=== PATIENT | female | born 1995 | race African-American/Black ===

== ENCOUNTER 2020-01-17 23:03 | Inpatient (IN) ==
[2020-01-17] MEDS ORDERED: ONDANSETRON 4 MG/2 ML VIAL IV PRN (23:21)
[2020-01-17] MEDS ORDERED: LACTATED RINGERS 1,000 ML IV ONE (23:21)
[2020-01-17] MEDS ORDERED: LACTATED RINGERS 1,000 ML IV SCH (23:30)
[2020-01-17] MEDS ORDERED: miSOPROStoL 200 MCG TABLET ONE (23:34)
[2020-01-17] MEDS ORDERED: MEPERIDINE 50 MG/1 ML VIAL ONE (23:34)
[2020-01-17] MEDS ORDERED: TRANEXAMIC ACID 1,000 MG/10 ML VIAL ONE (23:34)
[2020-01-17] MEDS ORDERED: ONDANSETRON 4 MG/2 ML VIAL ONE (23:34)
[2020-01-17] MEDS ORDERED: CARBOPROST TROMETHAMINE 250 MCG/ML AMP IM ONE (23:35)
[2020-01-17] MEDS ORDERED: OXYTOCIN/LR 20 UNIT/1,000 ML BAG IV ONE (23:35)
[2020-01-17] MEDS ORDERED: LIDOCAINE 1% 50 ML VIAL ONE (23:36)
[2020-01-17 23:40] LABS: Basophils % 0.1 % (0.0-0.8); Eosinophils % 0.3 % (0.00-10.9); Hematocrit 35.2 VOL% (35.7-47.0); Hemoglobin 11.4 GM/DL (12.0-16.0); Immature Granulocytes % 0.6 %; Immature Granulocytes Absolute 0.04 #; Lymphocytes # 1.9 10*3/uL (1.4-4.0); Lymphocytes % 25.8 % (21.3-54.2); Mean Corpuscular HGB Conc 32.4 GM/DL (32-36); Mean Corpuscular Volume 89.3 FL (87-102); Mean Platelet Volume 10.5 FL (9.6-12.0); Monocytes % 9.2 % (1.7-12.7); Platelet Count 225 T/CUMM (130-400); Red Blood Count 3.94 MC/CUMM (3.8-5.5); Red Cell Distribution Width 13.7 % (9.3-17.3); White Blood Count 7.2 T/CUMM (4-12)
[2020-01-18] MEDS ORDERED: OXYTOCIN/LR 20 UNIT/1,000 ML BAG IV ONE ×2 (00:01→01:18)
[2020-01-18 00:04] LABS: Alanine Aminotransferase 16 U/L (13-56); Albumin 2.8 G/DL (3.4-5.0); Alkaline Phosphatase 235 U/L (45-117); Aspartate Amino Transferase 17 U/L (0-37); Bilirubin,Total < 0.39 MG/DL (0.2-1.0); Blood Urea Nitrogen 7 MG/DL (7-18); Calcium 9.1 MG/DL (8.5-10.1); Estimated Glom Filtration Rate 194 ML/MIN; Glucose 88 MG/DL (74-106); Total Protein 7.5 G/DL (6.4-8.3)
[2020-01-18 01:15] LABS: Cord Arterial Blood HCO3 18.7 MMOL/L
[2020-01-18 01:18] LABS: Cord Venous Blood HCO3 21.1 MMOL/L; Cord Venous Blood PCO2 40.7 MMHG; Cord Venous Blood PO2 33.5
[2020-01-18] MEDS ORDERED: WITCH HAZEL PADS 100/JAR TOP PRN (01:18)
[2020-01-18] MEDS ORDERED: BISACODYL 10 MG SUPP RECTAL PRN (01:18)
[2020-01-18] MEDS ORDERED: BENZOCAINE 20%/MENTHOL 0.5% SPRAY 56 GM CAN TOP PRN (01:18)
[2020-01-18] MEDS ORDERED: LANOLIN 50% CREAM 0.3 OZ TUBE TOP PRN (01:18)
[2020-01-18] MEDS ORDERED: ACETAMINOPHEN 325 MG TABLET PO PRN (01:18)
[2020-01-18] MEDS ORDERED: DIPH/TET/ACEL PERT BOOSTER VACCINE 0.5 ML VIAL IM ONE (01:18)
[2020-01-18] MEDS ORDERED: MEASLES/MUMPS/RUBELLA VACCINE 0.5 ML VIAL SUBCUT ONE (01:18)
[2020-01-18] MEDS ORDERED: RHO(D) IMMUNE GLOBULIN 300 MCG SYRINGE IM ONE (01:18)
[2020-01-18] MEDS ORDERED: oxyCODONE/ACETAMINOPHEN 5-325 MG TABLET PO PRN ×2 (01:18)
[2020-01-18] MEDS ORDERED: HYDROCORTISONE 2.5% RECTAL CREAM 30 GM TUBE TOP PRN (01:18)
[2020-01-18] MEDS ORDERED: ONDANSETRON 4 MG/2 ML VIAL IV PRN (01:18)
[2020-01-18] MEDS ORDERED: IBUPROFEN 800 MG TABLET PO PRN (01:18)
[2020-01-18 05:33] LABS: Basophils % 0.2 % (0.0-0.8); Hematocrit 33.1 VOL% (35.7-47.0); Hemoglobin 10.8 GM/DL (12.0-16.0); Immature Granulocytes % 0.5 %; Immature Granulocytes Absolute 0.06 #; Lymphocytes # 1.2 10*3/uL (1.4-4.0); Lymphocytes % 10.1 % (21.3-54.2); Mean Corpuscular HGB Conc 32.6 GM/DL (32-36); Mean Platelet Volume 10.8 FL (9.6-12.0); Monocytes % 9.7 % (1.7-12.7); Neutrophils % 79.5 % (38.7-73.9); Platelet Count 223 T/CUMM (130-400); Red Blood Count 3.76 MC/CUMM (3.8-5.5); Red Cell Distribution Width 13.5 % (9.3-17.3); White Blood Count 11.9 T/CUMM (4-12)
[2020-01-18] MEDS: DOCUSATE SODIUM 100 MG CAPSULE PO SCH ×2 (11:10→21:13)
[2020-01-19] MEDS ORDERED: POTASSIUM CHLORIDE 10 MEQ TABLET PO SCH (09:00)
[2020-01-19 09:53] VITALS: BP 117/84
[2020-01-19] MEDS: DOCUSATE SODIUM 100 MG CAPSULE PO SCH (10:21)
== END 2020-01-19 13:00 | disposition home or self-care (01) | DRG 560 ==
LOC: N.LDOUT 23:03 → N.LD 23:05 → N.OB 01-18 03:45
PROVIDERS: ADMIT Obstetrics & Gynecology; ATTEND Obstetrics & Gynecology